=== PATIENT | male | born 1955 | race Caucasian/White ===

== ENCOUNTER 2024-08-06 11:16 | Outpatient (CLI) | payer MEDICARE, SELFPAY ==
--- NOTE | ~2024-08-06 | PE_ITS ---
EXAMINATION: PET_PETPSMAST_PT DATE: 08/06/2024 15:52 INDICATION: Prostate cancer. TECHNIQUE: 5.271 mCi of Ga-68 gozetotide was administered intravenously. Low dose computed tomography (CT) images were acquired from the base of the brain to the proximal thighs for attenuation correcti on and anatomic localization. Automated exposure control was employed. Dose-length product (DLP) was 1028 mGy-cm. Positron emission tomography (PET) images were acquired in the same distribution. COMPARISON: None FINDINGS: Head/neck: There are nodules in the thyroid measuring up to 11 mm, likely not clinically significant. There are no pathologically enlarged lymph nodes. Chest: Calcified right lung nodules and calcified right hilar mediastinal lymph nodes are consistent with old granulomatous disease. No pleural effusion. Cardiomegaly is noted. There are coronary artery calcifications. No pericardial effusion. Abdomen/pelvis/proximal thighs: The liver is normal. There are gallstones in the gallbladder, which i s normal in size. Calcifications in the spleen are consistent with old granulomatous disease. The solis creas, adrenal glands, and kidneys are normal. The bladder is distended. The prostate is moderately e nlarged. There is increased activity in the prostate bilaterally with maximum SUV of 89.2. There is d iverticulosis of the colon without evidence of diverticulitis. There are no pathologically enlarged l ymph nodes. There is no free intraperitoneal fluid. 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 There is an umbi lical hernia containing fat. There is a normal-sized perirectal lymph node on the left with maximum S UV of 4.5. There is no osseous malignancy. IMPRESSION: 1. Moderately enlarged prostate with increased activity, consistent with primary malignancy. 2. Normal-sized perirectal lymph node with mild activity suspicious for metastatic disease. Reviewed, dictated and finalized at location A. IMPRESSION: 1. Moderately enlarged prostate with increased activity, consistent with primar y malignancy. 2. Normal-sized perirectal lymph node with mild activity suspicious for metasta tic disease.
== END 2024-08-06 11:17 | disposition home or self-care (01) ==
LOC: ANHIMG 11:17
PROVIDERS: PCP Family Medicine; Visit Provider Urology
DX: C61 Malignant neoplasm of prostate (principal)
CPT/HCPCS: 78815; A9596

== ENCOUNTER 2024-09-25 13:01 | Outpatient (CLI) | payer MEDICARE, SELFPAY ==
--- NOTE | ~2024-09-25 | MR_ITS ---
EXAMINATION: MR pelvis wo/w con DATE: 09/25/2024 14:31 INDICATION: Malignant neoplasm of prostate. TECHNIQUE: Magnetic resonance imaging (MRI) of the pelvis was performed without and with 16 mL MultiH ance intravenous contrast. COMPARISON: PET/CT 08/06/2024 FINDINGS: The bladder is distended. The prostate is mildly enlarged. There are no pathologically enlarged lymph nodes. There is an umbilical hernia containing fat. IMPRESSION: 1. Mildly enlarged prostate. No evidence of metastatic disease. Reviewed, dictated and finalized at location A. [employer]
== END 2024-09-25 13:02 | disposition home or self-care (01) ==
PROVIDERS: PCP Family Medicine; Visit Provider Radiology Radiation Oncology
DX: N40.0 Benign prostatic hyperplasia without lower urinary tract symptoms (principal); C61 Malignant neoplasm of prostate
CPT/HCPCS: 72197; A9577